=== PATIENT | female | born 1970 | race Caucasian/White ===

== ENCOUNTER → 2016-10-01 | Outpatient (CLI) | payer OTHER ==
[~2016-10-01] MED LIST: CLON0.5T PO; EFFE150C PO; LIPI10TA PO; PREV30CA11 PO
--- NOTE | 2016-10-01 14:29 | REPMRS ---
Patient History The patient states she had a clinical breast exam in 09/2016. Patient is postmenopausal. Family history of breast cancer in maternal aunt under age 50. Digital Woman Screen Mammo: October 01, 2016 - Exam #: [id number] Bilateral CC and MLO view(s) were taken. Technologist: Radha Lin, Technologist Prior study comparison: May 17, 2015, digital woman screen mammo performed at [facility]. October 29, 2013, digital woman screen mammo performed at [facility]. March 14, 2012, digital woman screen mammo performed at [facility]. September 18, 2010, bilateral bilat screen digital mammo performed at [facility]. FINDINGS: The breast tissue is almost entirely fat. There has been no change in the appearance of the mammogram from the prior studies. There is no interval development of dominant mass, areas of architectural distortion, or clustered microcalcification typical of malignancy. Scattered fibronodular densities seen in the parenchyma in same small numbers, size and distribution as on multiple prior exams. Scattered lymph nodes are seen in the right axilla. There are scattered, small, benign calcifications of doubtful clinical significance. No significant changes when compared with prior studies. ASSESSMENT: BI-RADS/ACR category 2 mammogram. Benign finding(s). Recommendation Routine screening mammogram in 1 year. A. Negative x-ray reports should not delay biopsy if a dominant or clinically suspicious mass is present. B. Four to eight percent of cancers are not identified by mammography. C. Adenosis and dense breast may obscure an underlying neoplasm.(for women over age 40). This mammogram was interpreted with the aid of an FDA-approved computer-aided dectection system. Electronically Signed By: Silvestre Long MD 10/01/16 [id number]
== END ==
LOC: M WHC 13:28
PROVIDERS: ATTEND Nurse Practitioner Family
DX: Z12.31 Encounter for screening mammogram for malignant neoplasm of breast (principal); Z80.3 Family history of malignant neoplasm of breast; R92.1 Mammographic calcification found on diagnostic imaging of breast
CPT/HCPCS: 90834; G0202; G0463

== ENCOUNTER 2016-10-05 17:31 | Emergency (ER) | payer OTHER ==
[~2016-10-05] VITALS: Ht 160 cm; Wt 79.4 kg
[2016-10-05] MEDS ORDERED: LIPI10TA PO (17:52)
[2016-10-05] MEDS ORDERED: PREV30CA11 PO (17:52)
[2016-10-05] MEDS ORDERED: CLON0.5T PO (17:52)
[2016-10-05] MEDS ORDERED: EFFE150C PO (17:52)
[2016-10-05] MEDS ORDERED: ASPIRIN 81 MG CHEW TABLET PO ONE (18:15)
[2016-10-05 18:51] LABS: BASO % 0.4 % (0.0-1.0); EOS % 0.5 % (0.0-3.0); LARGE UNSTAINED CELL # 0.1 K/mm3 (0.0-0.4); LARGE UNSTAINED CELL % 1.4 % (0.0-4.0); LYMPH # 2.1 K/mm3 (1.5-4.5); LYMPH % 22.8 % (24.0-44.0); MEAN CORPUSCULAR HEMOGLOBIN 30.5 pg (27.0-33.0); MEAN CORPUSCULAR HGB CONC 34.5 g/dl (32.0-36.5); MEAN CORPUSCULAR VOLUME 88.4 fl (80.0-96.0); MONO # 0.4 K/mm3 (0.0-0.8); MONO % 4.6 % (0.0-5.0); NEUTROPHILS # 6.6 K/mm3 (1.8-7.7); NEUTROPHILS % 70.2 % (36.0-66.0); PLATELET COUNT, AUTOMATED 311 k/mm3 (150-450); RED CELL DISTRIBUTION WIDTH 11.9 % (11.5-14.5); WHITE BLOOD COUNT 9.4 K/mm3 (4.0-10.0)
[2016-10-05 19:14] LABS: ALBUMIN/GLOBULIN RATIO 1.29 (1.00-1.93); ALKALINE PHOSPHATASE 82 U/L (45-117); ALT/SGPT 24 U/L (12-78); ANION GAP 7 MEQ/L (8-16); AST/SGOT 10 U/L (15-37); BILIRUBIN,DIRECT < 0.1 MG/DL (0.0-0.2); BILIRUBIN,TOTAL 0.2 MG/DL (0.2-1.0); BLOOD UREA NITROGEN 9 MG/DL (7-18); CALCIUM LEVEL 9.1 MG/DL (8.5-10.1); CARBON DIOXIDE LEVEL 29 MEQ/L (21-32); CHLORIDE LEVEL 103 MEQ/L (98-107); CREATININE FOR GFR 0.97 MG/DL (0.55-1.02); GLOMERULAR FILTRATION RATE > 60.0 (>58); GLUCOSE, FASTING 247 MG/DL (70-105); POTASSIUM SERUM 4.7 MEQ/L (3.5-5.1); SODIUM LEVEL 139 MEQ/L (136-145); TOTAL PROTEIN 7.1 GM/DL (6.4-8.2)
--- NOTE | 2016-10-05 19:22 | REP ---
AP PORTABLE CHEST: 10/05/2016: Clinical history: Chest pain. Comparison: Chest x-ray 03/03/2013, 07/05/2011, portable chest 08/18/2012. Findings: Lungs are adequately inflated. There is no effusion or definite infiltrate. No dense atelectasis, pulmonary nodule or mass. The heart is not enlarged. There is no widening of the mediastinum. There is no vascular redistribution or edema. The aortic contour is normal. Airway intact. Impression: 1. No acute cardiopulmonary change. Stable chest. Signed by Silvestre Long MD 10/05/2016 08:19 P
[2016-10-06 00:05] VITALS: BP 115/65
--- NOTE | 2016-10-06 08:30 | ECGEPIP ---
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
--- NOTE | 2016-10-06 08:32 | ECGEPIP ---
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
== END 2016-10-06 00:06 | disposition home or self-care (01) ==
LOC: M ED 18:32
DX: R07.89 Other chest pain (principal); K21.9 Gastro-esophageal reflux disease without esophagitis; E78.5 Hyperlipidemia, unspecified; F41.9 Anxiety disorder, unspecified; F32.9 Major depressive disorder, single episode, unspecified; F17.210 Nicotine dependence, cigarettes, uncomplicated; Z82.49 Family history of ischemic heart disease and other diseases of the circulatory system; Z88.1 Allergy status to other antibiotic agents; Z91.040 Latex allergy status; Z91.048 Other nonmedicinal substance allergy status; Z79.899 Other long term (current) drug therapy

== ENCOUNTER → 2018-04-01 | Outpatient (CLI) | payer BC, OTHER, SELFPAY | LOC: M ADAMS 14:57 | DX: J20.9 Acute bronchitis, unspecified (principal) | CPT/HCPCS: 71046 ==

== ENCOUNTER → 2018-04-01 | Outpatient (CLI) | payer BC, OTHER, SELFPAY ==
[2018-04-01 19:21] LABS: BASO % 0.2 % (0.0-1.0); IMMATURE GRANULOCYTE % 0.7 % (0-3.0); LYMPH # 3.3 10^3/uL (1.5-4.5); LYMPH % 25.3 % (24.0-44.0); MEAN CORPUSCULAR HEMOGLOBIN 29.9 pg (27.0-33.0); MEAN CORPUSCULAR VOLUME 87.7 fl (80.0-96.0); MONO # 0.7 10^3/uL (0.0-0.8); MONO % 5.4 % (0.0-5.0); NEUTROPHILS # 8.8 10^3/uL (1.8-7.7); NEUTROPHILS % 68.4 % (36.0-66.0); PLATELET COUNT, AUTOMATED 342 10^3/uL (150-450); RED BLOOD COUNT 5.36 10^6/uL (4.00-5.40); RED CELL DISTRIBUTION WIDTH 11.9 % (11.5-14.5); WHITE BLOOD COUNT 12.8 10^3/uL (4.0-10.0)
== END ==
LOC: M LABDRWAD 14:54
DX: J20.9 Acute bronchitis, unspecified (principal)
CPT/HCPCS: 85025

== ENCOUNTER → 2018-12-19 | Outpatient (CLI) | payer OTHER ==
[~2018-12-19] MED LIST changes: -CLON0.5T PO; +CLON0.5T8 PO; -EFFE150C PO; +EFFE150C2 PO; +PREV1CAP PO; -PREV30CA11 PO
--- NOTE | 2018-12-19 16:35 | REPMRS ---
Patient History The patient states she had a clinical breast exam in 12/2018. Patient is postmenopausal. Family history of breast cancer at age 32 in maternal aunt. No Hormone Replacement Therapy Digital Woman Screen Mammo: December 19, 2018 - Exam #: [id number] Bilateral CC and MLO view(s) were taken. Technologist: Radha Lin, Technologist Prior study comparison: October 01, 2016, digital woman screen mammo performed at [facility]. May 17, 2015, digital woman screen mammo performed at [facility]. October 29, 2013, digital woman screen mammo performed at [facility]. FINDINGS: The breast tissue is almost entirely fat. There are small stable subcentimeter nodules present bilaterally. There has been no change in the appearance of the mammogram from the prior studies. There is no interval development of dominant mass, architectural distortion, or clustered microcalcification typical of malignancy. Assessment: BI-RADS/ACR category 2 mammogram. Benign Findings. Recommendation Routine screening mammogram of both breasts in 1 year (for women over age 40). This patient's Lifetime Breast Cancer RIsk is estimated at 7.8 %. This mammogram was interpreted with the aid of an FDA-approved computer-aided dectection system. Electronically Signed By: Jabari Joyner MD 12/19/18 [id number]
== END ==
LOC: M WHC 14:51
PROVIDERS: ATTEND Nurse Practitioner Family
DX: Z12.31 Encounter for screening mammogram for malignant neoplasm of breast (principal); Z80.3 Family history of malignant neoplasm of breast
CPT/HCPCS: 77067; G0463

== ENCOUNTER → 2019-04-26 | Outpatient (REF) | payer OTHER | LOC: M LAB REF 13:00 | PROVIDERS: ATTEND Physician Assistant Medical | DX: N39.0 Urinary tract infection, site not specified (principal) ==

== ENCOUNTER → 2019-07-15 | Outpatient (CLI) | payer OTHER ==
[~2019-07-15] MED LIST changes: +CLON0.5T2 PO; -CLON0.5T8 PO; +GLIM2TAB29 PO; +OMEP-221 PO
[2019-07-15 17:28] LABS: BLOOD UREA NITROGEN 12 MG/DL (7-18); CREATININE FOR GFR 0.96 MG/DL (0.55-1.30); GLOMERULAR FILTRATION RATE > 60.0 (>58)
== END ==
LOC: M PLALAB 12:57
PROVIDERS: ATTEND Nurse Practitioner Family
DX: Z91.89 Other specified personal risk factors, not elsewhere classified (principal)

== ENCOUNTER → 2019-07-23 | Outpatient (CLI) | payer OTHER ==
[~2019-07-23] MED LIST changes: +PROHANCE 279.3MG/ML 15ML VIAL (A9576) As Ordered ONE
--- NOTE | 2019-07-23 16:20 | REP ---
Bilateral breast MRI study without and with IV gadolinium: History: Positive family history breast carcinoma. 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 Comparison mammography December 19, 2018. Technique: Three Kathy MRI imaging was performed with a dedicated breast coil. Axial, coronal, and sagittal T1 and T2-weighted scans were obtained with and without fat saturation in the usual fashion. The study includes dynamically acquired post gadolinium enhanced imaging subtraction imaging. Maximal intensity projection and multiplanar re-formation imaging is included as well. The study was interpreted with the aid of [employer], an FDA approved computer-aided detection (CAD) software program, on a dedicated breast MRI work station. The gadolinium enhancement dose is 15 ml of intravenous ProHance. Findings: There is a mild pattern of scattered fibroglandular elements. There is mild background parenchymal enhancement. There is no evidence of axillary lymphadenopathy or significant breast cystic change. High-resolution pre and postcontrast imaging shows no suspicious morphologic abnormality in either breast. Dynamically acquired sequential post contrast images show no suspicious focus of enhancement washout in either breast to suggest malignancy. Subtraction images show no additional abnormality. Impression: BIRADS category one negative findings. Repeat screening breast MRI study recommended 1 year. Annual screening mammography should continue beginning 6 months from now. Electronically Signed by Dayne Joyner MD 07/23/2019 05:04 P
== END ==
LOC: M RAD 12:19
PROVIDERS: ATTEND Nurse Practitioner Family
DX: Z80.3 Family history of malignant neoplasm of breast (principal); Z91.89 Other specified personal risk factors, not elsewhere classified
CPT/HCPCS: A9576; C8908

== ENCOUNTER 2019-07-30 06:34 | Day surgery (SDC) | payer OTHER ==
[~2019-07-30] VITALS: Ht 160 cm; Wt 76.2 kg
[~2019-07-30 06:34] MED LIST changes: -PROHANCE 279.3MG/ML 15ML VIAL (A9576) As Ordered ONE
[2019-07-30] MEDS ORDERED: NS 1,000 ML IV ONE (07:00)
[2019-07-30] MEDS ORDERED: propofoL 200 MG/20 ML VIAL As Ordered ONE (07:05)
[2019-07-30] MEDS ORDERED: LIDOCAINE 2% INJ 100 MG/5 ML SDV (FOR ANES.) As Ordered ONE (07:05)
--- NOTE | 2019-07-30 07:54 | ROOR ---
Patient Name: Chelsea Diego Procedure Date: 07/30/2019 7:30 AM Date of : 1970 Age: 49 Room: [facility] Gender: Female Note Status: Finalized Procedure: Colonoscopy Indications: Family history of colon cancer. Genetic susceptibility to cancer Z15.09 Providers: Markus WHITTEN MD Referring MD: Mandie Merrill NP Requesting Provider: Medicines: Monitored Anesthesia Care Complications: No immediate complications. Procedure: Pre-Anesthesia Assessment: - The heart rate, respiratory rate, oxygen saturations, blood pressure, adequacy of pulmonary ventilation, and response to care were monitored throughout the procedure. The Colonoscope was introduced through the anus and advanced to the terminal ileum, with identification of the appendiceal orifice and IC valve. The colonoscopy was performed without difficulty. The patient tolerated the procedure well. The quality of the bowel preparation was good. Findings: The perianal and digital rectal examinations were normal. A few small-mouthed diverticula were found in the sigmoid colon. The entire examined colon appeared normal on direct and retroflexion views. Impression: - A few small sigmoid diverticula. - The entire examined colon is otherwise normal on direct and retroflexion views. - No specimens collected. Recommendation: - Repeat colonoscopy in 5 years for screening purposes. Markus Whitten MD Markus WHITTEN MD 07/30/2019 7:53:57 AM Electronically signed by Markus WHITTEN MD Number of Addenda: 0 Note Initiated On: 07/30/2019 7:30 AM Estimated Blood Loss: Estimated blood loss: none.
[2019-07-30 08:10] VITALS: BP 134/88
== END 2019-07-30 08:21 | disposition home or self-care (01) ==
LOC: M OPP 06:34
PROVIDERS: ATTEND Internal Medicine Gastroenterology
DX: K57.30 Diverticulosis of large intestine without perforation or abscess without bleeding (principal); Z80.0 Family history of malignant neoplasm of digestive organs; Z15.09 Genetic susceptibility to other malignant neoplasm; Z79.84 Long term (current) use of oral hypoglycemic drugs; Z79.899 Other long term (current) drug therapy; F17.210 Nicotine dependence, cigarettes, uncomplicated; Z88.1 Allergy status to other antibiotic agents; Z88.5 Allergy status to narcotic agent; Z91.040 Latex allergy status; Z91.048 Other nonmedicinal substance allergy status

== ENCOUNTER → 2019-10-14 | Outpatient (REF) | payer OTHER ==
[2019-10-14 19:11] LABS: BLOOD UREA NITROGEN 15 MG/DL (7-18); CREATININE FOR GFR 0.87 MG/DL (0.55-1.30); GLOMERULAR FILTRATION RATE > 60.0 (>58)
== END ==
LOC: M LABDRWAD 16:25
PROVIDERS: ATTEND Orthopaedic Surgery
DX: M25.571 Pain in right ankle and joints of right foot (principal); R22.41 Localized swelling, mass and lump, right lower limb

== ENCOUNTER → 2019-11-09 | Outpatient (CLI) | payer OTHER | LOC: M LABSMTC 13:40 | PROVIDERS: ATTEND Family Medicine | DX: Z11.59 Encounter for screening for other viral diseases (principal); Z01.818 Encounter for other preprocedural examination ==

== ENCOUNTER → 2019-11-17 | Outpatient (REF) | payer OTHER ==
[~2019-11-17] MED LIST changes: +AZIT-12; +MUCI600T31 PO; +PRED20TA
== END ==
LOC: M LAB REF 08:27
PROVIDERS: ATTEND Dermatology
DX: B07.9 Viral wart, unspecified (principal)

== ENCOUNTER 2019-11-28 15:31 | Emergency (ER) | payer OTHER ==
[~2019-11-28] VITALS: Ht 162.6 cm; Wt 75.4 kg
[~2019-11-28 15:31] MED LIST changes: -AZIT-12; -MUCI600T31 PO; -PRED20TA
[2019-11-28] MEDS ORDERED: PRED20TA (16:01)
[2019-11-28] MEDS ORDERED: AZIT-12 (16:01)
[2019-11-28 16:02] LABS: VENOUS BASE EXCESS -1.2 (-2.0-2.0); VENOUS HCO3 23.7 MEQ/L (23.0-27.0); VENOUS O2 SATURATION 83.1 % (60.0-80.0); VENOUS PARTIAL PRESSURE CO2 40.3 mmHg (38.0-50.0); VENOUS PH 7.387 UNITS (7.330-7.430); VENOUS STANDARD HCO3 23.1 MEQ/L; VENOUS TOTAL CO2 24.9 MEQ/L (24.0-28.0)
[2019-11-28 16:10] LABS: BASO % 0.2 % (0.0-1.0); HEMATOCRIT 47.9 % (36.0-47.0); HEMOGLOBIN 16.4 g/dl (12.0-15.5); LYMPH # 2.3 10^3/uL (1.5-5.0); MEAN CORPUSCULAR HEMOGLOBIN 29.4 pg (27.0-33.0); MEAN CORPUSCULAR HGB CONC 34.2 g/dl (32.0-36.5); MEAN CORPUSCULAR VOLUME 85.8 fl (80.0-96.0); MONO # 0.4 10^3/uL (0.0-0.8); MONO % 3.1 % (0.0-5.0); NEUTROPHILS # 9.9 10^3/uL (1.5-8.5); NEUTROPHILS % 78.2 % (36.0-66.0); PLATELET COUNT, AUTOMATED 332 10^3/uL (150-450); RED BLOOD COUNT 5.58 10^6/uL (4.00-5.40); WHITE BLOOD COUNT 12.7 10^3/uL (4.0-10.0)
[2019-11-28] MEDS ORDERED: NS 1,000 ML IV ONE (16:15)
[2019-11-28] MEDS ORDERED: IPRATROPIUM 0.5MG/ALBUTEROL 2.5MG INH SOL UD 3ML (DUONEB) NEB ONE (16:15)
--- NOTE | 2019-11-28 16:35 | REP ---
Clinical: Cough and shortness of breath . Comparison: 04/01/2018 . Findings: The mediastinum and cardiac silhouette are stable and within normal limits for portable technique. The lung hogue are clear without acute consolidation, effusion, or pneumothorax. Skeletal structures are intact. Impression: No acute cardiopulmonary process appreciated. Electronically Signed by Rohith Dempsey MD 11/28/2019 04:26 P
[2019-11-28 16:37] LABS: ALBUMIN 4.2 GM/DL (3.2-5.2); BILIRUBIN,DIRECT 0.1 MG/DL (0.0-0.2); BILIRUBIN,TOTAL 0.3 MG/DL (0.2-1.0); TOTAL PROTEIN 7.7 GM/DL (6.4-8.2)
[2019-11-28] MEDS ORDERED: ISOVUE-370 76% 100ML VIAL As Ordered ONE (16:38)
[2019-11-28] MEDS ORDERED: MUCI600T31 PO (17:15)
[2019-11-28 17:20] VITALS: BP 119/70
--- NOTE | 2019-11-29 09:13 | REP ---
Clinical: Acute chest pain with cough and shortness of breath. Technique: Axial contrast enhanced images from the thoracic inlet to the upper abdomen using 75 ml Isovue 370 intravenous contrast material with coronal and sagittal re-formations. Post processing coronal and sagittal MIP images obtained. Findings: Satisfactory enhancement of the pulmonary vasculature is achieved and no filling defects are identified to suggest pulmonary embolus. Thoracic aorta is normal caliber without aneurysm or dissection. Heart and pericardium are normal. Bilateral lung hogue are well aerated and clear without acute pulmonary parenchymal consolidation or atelectasis. No nodule or mass lesion. No pleural effusion/reaction. No pneumothorax. No adenopathy. Impression: No evidence for pulmonary embolus. No acute pleuroparenchymal or mediastinal process. Electronically Signed by Rohith Dempsey MD 11/29/2019 08:54 A
== END 2019-11-28 17:26 | disposition home or self-care (01) ==
LOC: M ED 15:31
DX: J40 Bronchitis, not specified as acute or chronic (principal); R50.9 Fever, unspecified; E11.65 Type 2 diabetes mellitus with hyperglycemia; Z87.442 Personal history of urinary calculi; F17.210 Nicotine dependence, cigarettes, uncomplicated; J30.1 Allergic rhinitis due to pollen; Z79.899 Other long term (current) drug therapy; Z79.52 Long term (current) use of systemic steroids; Z79.2 Long term (current) use of antibiotics; Z91.040 Latex allergy status; Z91.048 Other nonmedicinal substance allergy status; Z88.1 Allergy status to other antibiotic agents; Z88.5 Allergy status to narcotic agent
CPT/HCPCS: 71045; 71275; 80047; 80076; 82803; 83690; 85025; 85379; 94640; 96360; 99284; Q9967

== ENCOUNTER 2019-12-14 19:29 | Emergency (ER) | payer OTHER ==
[~2019-12-14] VITALS: Ht 160 cm; Wt 75.7 kg
[~2019-12-14 19:29] MED LIST changes: +AZIT-12; +MUCI600T31 PO; +PRED20TA
[2019-12-14] MEDS ORDERED: KEFL500C17 PO (19:38)
[2019-12-14] MEDS ORDERED: KETOROLAC 30 MG/ML 1ML VIAL IV ONE (20:15)
[2019-12-14 20:29] LABS: BASO # 0.1 10^3/uL (0.0-0.2); BASO % 0.5 % (0.0-1.0); EOS % 0.1 % (0.0-3.0); HEMATOCRIT 47.5 % (36.0-47.0); HEMOGLOBIN 16.2 g/dl (12.0-15.5); LYMPH # 3.9 10^3/uL (1.5-5.0); LYMPH % 37.6 % (24.0-44.0); MEAN CORPUSCULAR HEMOGLOBIN 29.8 pg (27.0-33.0); MEAN CORPUSCULAR HGB CONC 34.1 g/dl (32.0-36.5); MEAN CORPUSCULAR VOLUME 87.3 fl (80.0-96.0); MONO % 9.5 % (0.0-5.0); NEUTROPHILS # 5.4 10^3/uL (1.5-8.5); NEUTROPHILS % 51.7 % (36.0-66.0); PLATELET COUNT, AUTOMATED 322 10^3/uL (150-450); RED BLOOD COUNT 5.44 10^6/uL (4.00-5.40); WHITE BLOOD COUNT 10.5 10^3/uL (4.0-10.0)
[2019-12-14 20:49] LABS: ERYTHROCYTE SEDIMENTATION RATE 8 mm/hr (0-20)
[2019-12-14 20:51] LABS: INR 1.01
[2019-12-14 20:52] LABS: PARTIAL THROMBOPLASTIN TIME 28.6 SECONDS (25.0-38.4)
[2019-12-14 20:58] LABS: ALBUMIN 3.9 GM/DL (3.2-5.2); ALT/SGPT 23 U/L (12-78); BILIRUBIN,DIRECT 0.1 MG/DL (0.0-0.2); BILIRUBIN,TOTAL 0.4 MG/DL (0.2-1.0); BLOOD UREA NITROGEN 8 MG/DL (7-18); C REACTIVE PROTEIN QUANTITATIV 1.26 MG/DL (0.00-0.30); CALCIUM LEVEL 9.3 MG/DL (8.5-10.1); CARBON DIOXIDE LEVEL 26 MEQ/L (21-32); CHLORIDE LEVEL 104 MEQ/L (98-107); GLOMERULAR FILTRATION RATE > 60.0 (>58); GLUCOSE, FASTING 198 MG/DL (70-100); POTASSIUM SERUM 4.2 MEQ/L (3.5-5.1); SODIUM LEVEL 137 MEQ/L (136-145); TOTAL PROTEIN 7.2 GM/DL (6.4-8.2)
[2019-12-14] MEDS ORDERED: BACT800T5 PO ×2 (21:20→21:50)
[2019-12-14] MEDS ORDERED: GENT1OI TOP (21:20)
[2019-12-14] MEDS ORDERED: ceFAZolin SOD 1 GM in D5W MINI-BAG PLUS 50 ML IV ONE (21:30)
--- NOTE | 2019-12-14 21:37 | CR.PDOC ---
General Date of Consultation: Dec 14, 2019 Referring Provider: DAWN CANTU MD Consultation REASON FOR CONSULTATION/CHIEF COMPLAINT: Blister on right lateral ankle after tr eatment in office last week. HISTORY OF PRESENT ILLNESS: Patient is a 49 yo WF who is a smoker with past medical history of poorly controlled DM2, left ankle fracture in 2016, and MRSA in 2005 who presents to the ED at [facility] after discussion with me on the phone. Patient had biopsy proven wart of the right lateral malleolus (ankle) in November 2019 at [facility] Dermatology. Last week, patient opted for treatment of the wart after discussion of R/B/A (including doing nothing) and opted for cantharidin podophyllin and melinda acid treatment in the clinic. She washed the resin off mid afternoon as instructed and the next day noticed a blister forming. The area became puffier each subsequent day and more tender to walk on the right foot. This morning the patient sent me photographs of the right foot and ankle. It was warm and tender to touch but she could move the foot. I sent her doxy and tramadol. She did not get/take the doxy because of intolerance to tetracycline type medications (upset stomach, n/v). She sent more pictures about 6 pm this evening. The area was more swollen and warmer and more painful and she had not started abx as discussed above. I sent her Keflex and scheduled a follow up with me at 715 am. After careful consideration, I called her back about 30 minutes later and discussed more in depth the degree of her symptoms. Based on the severity of her symptoms, the appearance of the blister, the redness and warmth of the area, her uncontrolled diabetes, I offered to meet the patient at the ED to address the problem and evaluate for a SSTI/cellulitis vs. concern for septic joint development in a diabetic patient with a wound to the right ankle. She told me she had already taken one Keflex and that she would meet me at the ED. ALLERGIES: Please see below. HOME MEDICATIONS: Please see below. Past Medical History Endometriosis. Esophageal reflux. Disc disease/bulging back/chronic back pain. Abnormal pap smear. Hyperlipidemia. MRSA 06/12. Hydradenitis supprativa. Anxiety and panic attacks. Urinary incontinence. DM type 2. Fx left ankle 2016. Chek2 Gene mutation ,elevated breast cancer risk 23-48 % and colon cancer risk may also be elevated. Surgical History hysterectomy [facility] 2006 laser therapy/cryo laparoscopy appendectomy and right ovary 01/2006 left ovary removed 06/2006 tonsillectomy 11/16 Family History Father: 59 yrs, [place] Mother: alive, hyperlipidemia Siblings: brother thyroid disease,cholesterol [place] at age 48 Paternal Grand Mother: , stomach cancer Maternal uncle: bladder cancer Maternal aunt: , cancer, bilateral breast in her 30's mets brain GI , lung 1 brother(s) , 2 sister(s) . grandparents DM denies family hx of melanoma. Social History General: Tobacco Use Are you a: current smoker How often do you smoke cigarettes? every day How soon after you wake up do you smoke your first cigarette? 6-30 min How many cigarettes a day do you smoke? 6-10 Are you interested in quitting? Not ready to quit Patient counseled on the dangers of tobacco use and urged to quit: 08/28/2019 Counseled the patient on smoking effects, education provided 02/09/2019 Latex Questionnaire Latex Allergy : Have you ever developed any type of reaction after handling latex products such as rubber gloves, condoms, diaphragms, balloons, socks, or underwear? Yes - Please Indicate : Condoms, Other (document in notes) blisters Latex Allergy : Have you ever developed any type of reaction during or after dental appointment, vaginal/rectal examination, surgical procedure, or any other exposure? No Latex Risk : Have you ever had any difficulty breathing or hives after eating or handling any fruits, or vegetables; such as kiwi, bananas, stone fruits, or chestnuts No Latex Risk : Do you have a previous personal history of more than nine surgeries, spina bifida, or repeated catherizations? No Latex Risk : Are you frequently exposed to latex products in your occupation? No Date Asked : 08/28/2019 BMI Care Goal Follow-Up Above Normal BMI Follow-Up Lifestyle education regarding diet Alcohol Screening Did you have a drink containing alcohol in the past year? No Points 0 Interpretation Negative Recreational drug use denies. Caffeine Caffeine use? Yes 6 cups daily HIV / Hep-C Screening HIV Test Offered to Patient: Yes Date Offered: 12/19/2018 Test Accepted: No Hep-C Test Offered to Patient: No Reason: Patient Declined Brochure Provided to Patient No Rastafari Rastafari 33 None Language Languages spoken: Romansh Education Level of Education: College GED, some college Learning Barriers / Special Needs Change from Last Visit? No Barriers to Learning? No Hearing Impaired? No Vision Impaired? No Cognitively Impaired? No Readiness to Learn? Yes Learning Preferences? No Learning Capabilities Present? Yes Emotional Barriers? No Special Devices? No Contract Loader Needed? No Domestic Violence none. 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 Diet: lower carbs. Exercise: Walks 3 hours 3 x a week. 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 Others at home: spouse, adult son. REVIEW OF SYSTEMS: CONSTITUTIONAL: No fever, no chills, no fatigue (no problems in last several days) HEENT: No URI symptoms CARDIOVASCULAR: No chest pain RESPIRATORY: No trouble breathing GENITOURINARY: No genital sores MUSCULOSKELETAL: + pain with walking on the right foot GASTROINTESTINAL: No nausea, no vomiting SKIN: + blister right ankle, redness right ankle, warmth right pain, tenderness to palpation right ankle NEUROLOGICAL: No headache, no dizziness PSYCHIATRIC: No change in mood other than concern for recent situation ENDOCRINE: + high blood sugars that do not go below 200 even when fasting HEMATOLOGIC/LYMPHATIC: No abnormal bruising, + swelling of the right lower leg to foot and ankle ALLERGIC/IMMUNOLOGIC: No recent allergic reactions per patient PHYSICAL EXAMINATION: VITAL SIGNS: Please see below. GENERAL APPEARANCE: WDWNWF in NAD, overweight HEENT: EOMI RESPIRATORY: RRR CARDIOVASCULAR: No pitting edema of the lower extremities ABDOMEN: Soft supple EXTREMITIES: Right lower extremity with lateral malleolus (ankle) with 4.5 cm blister (original wart = 3 cm at time of shave biopsy), tender to palpation, mildly warm to touch, erythema around site; for the right foot/ankle - no pain with passive or active flexion done at bedside, nor pain with adduction or abduction of the right foot/ankle NEUROLOGICAL: AAOx4 PSYCHIATRIC: Mood congruent, affect normal LABORATORY DATA: Please see below. ASSESSMENT/PLAN: 49 yo WF with in office treatment last week for wart on right lateral ankle with large blister at site with pain, redness, warmth, tenderness, and difficulty walking with concern for SSTI/cellulitis > septic joint. 1. Blister - The blister itself represents a robust response to the treatment offered in clinic. Patient is aware. Based on size of lesion, and after informed consent was obtained with R/B/A reviewed, the patient elected to get I&D of the blister with fluid sent for wound culture. The area was cleansed with Hibiclens, an absorptive pad was placed under the right foot, an 18 G needle was used to place 3 incisions into the inferolateral aspect of the blister, approximately 10 cc of fluid drained off the blister, fluid was obtained for culture. I advised the ED to wrap with Vaseline, Keflex, and Coban. 2. Pain, redness, warmth, tenderness, and difficulty walking on right foot - My concern is for SSTI/cellulitis at the site given her uncontrolled diabetes. I agree with the ED obtaining CBC, CMP, ESR, CRP, lactate, blood cultures x 2. The patient is afebrile. She is able to ambulate. Pending laboratories, I will defer to the ED re: disposition of need for hospital bed vs. outpatient follow up on abx. If able to be safely discharged, then should place on Bactrim, stop Keflex, and should complete a minimum of 10-14 day course. Patient has tolerated sulfa in the past. In addition, she should apply gentamicin ointment daily to the area and then wrap up with compressive bandage to help with edema of the foot. Prior to placing gentamicin ointment, she should wash the foot and ankle with Hibiclens. She should follow up with me and her primary within the week, the ONLINE ACTIVIST in the ED is aware of these directions. For pain, patient received ketorolac. I prescribed her tramadol 50 mg daily for high pain levels x 7 days, patient is aware and has rx and she can use the medicine if necessary. I agree with giving patient an IV dose of antibiotics per ED discretion before leaving the ED. At home, she should also keep her legs elevated and recline of the couch, optimize her blood sugars, patient is aware. If not able to be discharged, I would recommend admit to the hospital and ortho evaluation if concern for joint involvement based on labs, ED is aware. She would need to be placed on IV abx. I would follow along as a vendor management consultant were patient admitted in the hospital. Disposition pending the above. If anything changes and the patient has been discharged from the ED, she has my cell phone work number and will call me or text me as she was earlier in the day. Patient is aware of plan. Dawn Cantu MD FAAD Director, [facility] Vital Signs/I&O Vital Signs Date Time Temp Pulse Resp B/P (MAP) Pulse Ox O2 Delivery O2 Flow Rate FiO2 12/14/19 19:29 98.4 102 18 141/84 (103) 98 Allergies Coded Allergies: HAY FEVER (Verified Allergy, Intermediate, STRAW - BLISTERS, 07/16/19) Latex, Natural Rubber (Verified Allergy, Mild, condoms- rash, 12/14/19) TAPE (Verified Allergy, Mild, RASH, 12/14/19) hydrocodone (Unverified Allergy, Unknown, 12/14/19) erythromycin base (Verified Adverse Reaction, Intermediate, chest pain, 12/14/19) tetracycline (Verified Adverse Reaction, Intermediate, chest pain, 12/14/19) doxycycline (Verified Adverse Reaction, Mild, nausea, 12/14/19) Home Medications Scheduled Atorvastatin Calcium (Lipitor) 10 Mg Tab, 10 MG PO DAILY, (Reported) Cephalexin (Keflex) 500 Mg Capsule, 500 MG PO TID for 10 Days, #30 (Reported) Clonazepam (Clonazepam) 0.5 Mg Tab, 0.5 MG PO DAILY, (Reported) Glimepiride (Glimepiride) 2 Mg Tablet, 2 MG PO DAILY, (Reported) Guaifenesin (Mucinex) 600 Mg Tab.er.12h, 1 TAB PO BID for cough for 10 Days, #20 Omeprazole (Omeprazole) 40 Mg Capsule.dr, 40 MG PO DAILY, (Reported) Venlafaxine HCl (Effexor Xr) 150 Mg Cap, 225 MG PO DAILY, (Reported) DAWN CANTU MD Dec 14, 2019 20:01
[2019-12-14 22:11] VITALS: BP 136/84
== END 2019-12-14 22:21 | disposition home or self-care (01) ==
LOC: M ED 19:29
DX: L03.115 Cellulitis of right lower limb (principal); E11.9 Type 2 diabetes mellitus without complications; F17.200 Nicotine dependence, unspecified, uncomplicated; J30.89 Other allergic rhinitis; Z79.4 Long term (current) use of insulin; Z79.899 Other long term (current) drug therapy; Z88.1 Allergy status to other antibiotic agents; Z88.5 Allergy status to narcotic agent; Z91.040 Latex allergy status
CPT/HCPCS: 10060; 80048; 80076; 83605; 85025; 85610; 85652; 85730; 86140; 87040; 87070; 87205; 96365; 96375; 99283; J0690; J1885

== ENCOUNTER → 2019-12-31 | Outpatient (CLI) | payer OTHER ==
[~2019-12-31] MED LIST changes: +BACT800T5 PO; +GENT1OI TOP; +KEFL500C17 PO
== END ==
LOC: M LABSMTC 10:45
PROVIDERS: ATTEND Family Medicine
DX: Z03.818 Encounter for observation for suspected exposure to other biological agents ruled out (principal); Z11.59 Encounter for screening for other viral diseases
CPT/HCPCS: C9803; U0003

== ENCOUNTER → 2020-06-13 | Outpatient (CLI) | payer SELFPAY | LOC: M LABSMTC 19:10 | PROVIDERS: ATTEND Pediatrics | DX: Z11.59 Encounter for screening for other viral diseases (principal) ==

== ENCOUNTER → 2020-06-16 | Outpatient (CLI) | payer OTHER ==
[~2020-06-16] MED LIST changes: +BYDU2INJ7 SQ; +GLIM4TAB5 PO; +VENL75CA2 PO
--- NOTE | 2020-06-16 12:51 | REP ---
INDICATION: N64.4 LT BREAST PAIN. Localized left breast pain superomedial quadrant. COMPARISON: Mammography dated December 19, 2018, October 01, 2016, and May 17, 2015. TECHNIQUE: Bilateral CC and MLO) view(s) were taken. 3D tomography is carried out. FINDINGS: Scattered fibroglandular elements are seen bilaterally. No suspicious or dominant density is seen. No microcalcification or architectural distortion is seen. No worrisome skin change is appreciated. 3-D tomosynthesis shows no additional finding. Normal lymph nodes are noted in the axillary regions. No suspicious mammographic abnormality. The Volpara volumetric breast density pattern is B. Targeted sonography: Targeted sonography in the area patient's pain in and about the left breast superiorly shows homogeneous breast parenchymal texture. No cyst, mass, or acoustic shadowing is seen by ultrasound. IMPRESSION: BIRADS/ACR category 1 negative mammographic and sonographic findings. This patient's Tyrer-Cuzick lifetime breast cancer risk assessment score is 7.6%. This mammogram was interpreted with the aid of an FDA-approved computer-aided detection system. The patient states she had a clinical breast exam in June of 2020. The patient letter being requested is M2. RECOMMENDATION: Repeat screening mammography recommended 1 year (for women over 40). <Electronically signed by Jabari Joyner > 06/16/20 [id number]
== END ==
LOC: M WHC 08:59
PROVIDERS: ATTEND Nurse Practitioner Family
DX: N64.4 Mastodynia (principal)
CPT/HCPCS: 76642; 77066; G0279; G0463

== ENCOUNTER 2020-07-09 10:49 | Emergency (ER) | payer OTHER ==
[~2020-07-09] VITALS: Ht 162.6 cm; Wt 74.8 kg
[~2020-07-09 10:49] MED LIST changes: -BYDU2INJ7 SQ; -GLIM4TAB5 PO; -VENL75CA2 PO
[2020-07-09] MEDS ORDERED: BYDU2INJ7 SQ (11:04)
[2020-07-09 11:14] LABS: BASO # 0.1 10^3/uL (0.0-0.2); BASO % 0.4 % (0.0-1.0); HEMATOCRIT 50.1 % (36.0-47.0); HEMOGLOBIN 16.3 g/dl (12.0-15.5); LYMPH # 3.4 10^3/uL (1.5-5.0); LYMPH % 25.1 % (24.0-44.0); MEAN CORPUSCULAR HEMOGLOBIN 28.6 pg (27.0-33.0); MEAN CORPUSCULAR HGB CONC 32.5 g/dl (32.0-36.5); MONO # 0.8 10^3/uL (0.0-0.8); MONO % 5.8 % (0.0-5.0); NEUTROPHILS # 9.2 10^3/uL (1.5-8.5); NEUTROPHILS % 68.3 % (36.0-66.0); PLATELET COUNT, AUTOMATED 336 10^3/uL (150-450); RED BLOOD COUNT 5.69 10^6/uL (4.00-5.40); WHITE BLOOD COUNT 13.5 10^3/uL (4.0-10.0)
[2020-07-09] MEDS ORDERED: ASPIRIN 81 MG CHEW TABLET PO ONE (11:15)
[2020-07-09] MEDS: NITROGLYCERIN 0.4 MG SUBL TABLET SL PRN ×3 (11:20→11:30)
[2020-07-09 11:25] VITALS: BP 126/85
--- NOTE | 2020-07-09 11:40 | REP ---
INDICATION: CHEST PAIN COMPARISON: 11/28/2019 TECHNIQUE: Portable AP view of the chest FINDINGS: The mediastinum and cardiac silhouette are stable and within normal limits for portable technique. The lung hogue are clear without acute consolidation, effusion, or pneumothorax. Skeletal structures are intact. IMPRESSION: No acute cardiopulmonary process appreciated. <Electronically signed by Rohith Dempsey > 07/09/20 [id number]
[2020-07-09] MEDS: MORPHINE 4 MG/ML 1ML VIAL/SYRINGE (J2270) IV PRN ×2 (11:43→12:39)
[2020-07-09] MEDS ORDERED: ONDANSETRON 4MG/2ML VIAL IV ONE (11:45)
[2020-07-09 11:52] LABS: ALT/SGPT 32 U/L (12-78); BILIRUBIN,DIRECT < 0.1 MG/DL (0.0-0.2); BILIRUBIN,TOTAL 0.3 MG/DL (0.2-1.0); FREE T4 1.18 NG/DL (0.76-1.46); LIPASE 442 U/L (73-393); NT-PRO BNP 132 PG/ML (<125); TOTAL PROTEIN 7.2 GM/DL (6.4-8.2)
[2020-07-09] MEDS ORDERED: ISOVUE-370 76% 100ML VIAL As Ordered ONE (13:45)
--- NOTE | 2020-07-09 14:10 | REP ---
INDICATION: CP COMPARISON: None. TECHNIQUE: Axial contrast enhanced images from the thoracic inlet to the upper abdomen using pulmonary embolus technique with multiplanar re-formations. 100 ml Isovue 370 intravenous contrast material administered without complication. This CT examination was performed using the following dose reduction techniques: Automated exposure control, adjustment of mA and/or kv according to the patient's size, and use of iterative reconstruction technique. FINDINGS: Satisfactory enhancement of the pulmonary vasculature is achieved and no filling defects are identified to suggest pulmonary embolus. Further evaluation of the mediastinum demonstrates normal thoracic aorta, heart and pericardium. The bilateral lung hogue are well aerated and clear without consolidation pleural effusion or pneumothorax. Tracheobronchial tree is patent. No nodule or mass lesion is identified. No adenopathy noted. Surrounding musculoskeletal structures intact IMPRESSION: No evidence for pulmonary embolus. No acute mediastinal or pleural parenchymal process. <Electronically signed by Rohith Dempsey > 07/09/20 [id number]
--- NOTE | 2020-07-09 14:16 | REP ---
INDICATION: abd pain. COMPARISON: 02/14/2009 TECHNIQUE: Axial contrast-enhanced images from the lung bases to the pubic symphysis using 100 cc Isovue 370 intravenous contrast material. Coronal and sagittal reformations obtained.. This CT examination was performed using the following dose reduction techniques: Automated exposure control, adjustment of mA and/or kv according to the patient's size, and the use of iterative reconstruction technique. FINDINGS: Diffuse fatty infiltration to the liver noted without focal hepatic lesion. Spleen, pancreas, gallbladder, bilateral adrenal glands and kidneys are normal. The enteric system including stomach, small, and large bowel appears normal. No evidence for obstruction or acute inflammatory process. Evidence for prior appendectomy noted. Few scattered sigmoid diverticula are appreciated without acute diverticulitis. Pelvis demonstrates normal bladder and evidence for prior hysterectomy. No ascites. No free air. No intraperitoneal or retroperitoneal adenopathy. Small fat containing periumbilical hernia. Abdominal aorta and vasculature appear normal. Musculoskeletal structures are intact and without acute osseous abnormality. IMPRESSION: No acute abdominopelvic pathology appreciated. No ascites, focal inflammatory stranding, or adenopathy. Hepatosteatosis. Evidence for prior appendectomy and hysterectomy. <Electronically signed by Rohith Dempsey > 07/09/20 [id number]
--- NOTE | 2020-07-09 14:39 | ECGEPIP ---
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
--- NOTE | 2020-07-09 14:40 | ECGEPIP ---
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
--- NOTE | 2020-07-09 14:41 | ECGEPIP ---
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
[2020-07-09] MEDS ORDERED: GLIM4TAB5 PO (15:22)
[2020-07-09] MEDS ORDERED: VENL75CA2 PO (15:22)
[2020-07-09 16:44] LABS: RSV AMPLIFICATION NEGATIVE (NEGATIVE)
[2020-07-09] MEDS ORDERED: HEPARIN SOD (PORCINE) 5000UNITS/ML 1ML VIAL/SYRINGE IV ONE (17:45)
[2020-07-09] MEDS ORDERED: CLOPIDOGREL 300 MG TAB (PLAVIX) PO ONE (17:45)
[2020-07-09] MEDS ORDERED: HEPARIN DRIP 25,000 UNITS in IV 1 EA IV SCH (18:00)
[2020-07-09 18:47] VITALS: BP 116/92
== END 2020-07-09 18:49 | disposition short-term general hospital (02) ==
LOC: M ED 10:49
DX: I21.4 Non-ST elevation (NSTEMI) myocardial infarction (principal); R07.9 Chest pain, unspecified; I44.0 Atrioventricular block, first degree; K76.0 Fatty (change of) liver, not elsewhere classified; E11.9 Type 2 diabetes mellitus without complications; J30.89 Other allergic rhinitis; E78.5 Hyperlipidemia, unspecified; F17.200 Nicotine dependence, unspecified, uncomplicated; Z79.899 Other long term (current) drug therapy; Z91.040 Latex allergy status; Z91.89 Other specified personal risk factors, not elsewhere classified; Z88.1 Allergy status to other antibiotic agents; Z88.5 Allergy status to narcotic agent
CPT/HCPCS: 71045; 71275; 74177; 80047; 80076; 83690; 83880; 84439; 84443; 84484; 85025; 87631; 93005; 93041; 94760; 96374; 96375; 96376; 99285; J1644; J2270; J2405; Q9967

== ENCOUNTER → 2020-08-18 | Outpatient (REF) | payer OTHER ==
[~2020-08-18] MED LIST changes: +BYDU2INJ7 SQ; +GLIM4TAB5 PO; +VENL75CA2 PO
[2020-08-18 15:00] LABS: BLOOD UREA NITROGEN 15 MG/DL (7-18); CREATININE FOR GFR 0.96 MG/DL (0.55-1.30); GLOMERULAR FILTRATION RATE > 60.0 (>58)
== END ==
LOC: M PLALAB 09:43
PROVIDERS: ATTEND Nurse Practitioner Family
DX: Z91.89 Other specified personal risk factors, not elsewhere classified (principal)

== ENCOUNTER → 2020-08-18 | Outpatient (CLI) | payer OTHER ==
[2020-08-18 15:15] LABS: LUTEINIZING HORMONE 38.4 mIU/mL; PROLACTIN 4.2 NG/ML; THYROID STIMULATING HORMONE 0.543 uIU/ML (0.358-3.740)
[2020-08-18 17:08] LABS: FOLLICLE STIMULATING HORMONE 107.2 mIU/mL
--- NOTE | 2020-08-19 01:42 | REPPI ---
INDICATION: M25.511 PAIN IN RIGHT SHOULDER COMPARISON: 03/11/2013 TECHNIQUE: Internal rotation, external rotation, and Y view. FINDINGS: No acute fracture or dislocation. The acromioclavicular and glenohumeral joints are intact. Subacromial space is normal. The bulky calcifications adjacent to the greater tuberosity on prior examination are considerably decreased with only small residual calcifications now identified. IMPRESSION: Decreased calcifications adjacent to the greater tuberosity as compared with 2013. Otherwise age-appropriate examination. <Electronically signed by Rohith Dempsey > 08/19/20 0139
== END ==
LOC: M PLAIMG 09:44
PROVIDERS: ATTEND Family Medicine
DX: M25.511 Pain in right shoulder (principal); R23.2 Flushing; Z91.89 Other specified personal risk factors, not elsewhere classified

== ENCOUNTER → 2020-09-12 | Outpatient (CLI) | payer OTHER ==
--- NOTE | 2020-09-12 15:04 | REP ---
INDICATION: ROTATOR CUFF RUPTURE. COMPARISON: None. TECHNIQUE: Coronal oblique T1, T2 fat sat, sagittal oblique T2 fat sat, axial T2 fat sat, gradient echo. FINDINGS: Rotator cuff: There are partial thickness undersurface tears of the supraspinatus and infraspinatus tendons. Acromioclavicular joint: There are mild hypertrophic degenerative changes of the acromioclavicular joint. Acromion: Type 1 Biceps Tendon: Within the bicipital groove, there is mild to moderate surrounding fluid. Hill Sach's deformity: None. Deltoid muscle: No abnormal signal. Biceps labral complex: There is a tear at the biceps labral complex. Labrum: There is a SLAP tear. There is a tear of the anterior labrum. Cartilage: There is a tear of the anterior glenoid cartilage. Bone marrow: Mild subcortical marrow edema and cystic changes seen in the superolateral humeral head. Joint fluid: Small joint effusion is seen. Within the fluid beneath the coracoid process there is debris, possible synovial thickening and a possible joint body measuring 5 mm in diameter. IMPRESSION: Partial thickness undersurface tears of supraspinatus and infraspinatus tendons. Mild hypertrophic degenerative changes acromioclavicular joint. Mild to moderate fluid surrounding the biceps tendon. There is a tear of the biceps labral complex and an associated SLAP tear. There is an anterior glenoid cartilage and labral tear. Small complex joint effusion with possible synovial thickening and joint body 5 mm in diameter. <Electronically signed by Kyler Miles > 09/12/20 [id number]
== END ==
LOC: M RAD 13:14
PROVIDERS: ATTEND Family Medicine
DX: M75.101 Unspecified rotator cuff tear or rupture of right shoulder, not specified as traumatic (principal); M25.411 Effusion, right shoulder

== ENCOUNTER → 2021-01-31 | Outpatient (CLI) | payer OTHER ==
[2021-01-31 14:09] LABS: BLOOD UREA NITROGEN 14 MG/DL (7-18); CALCIUM LEVEL 9.5 MG/DL (8.5-10.1); CARBON DIOXIDE LEVEL 26 MEQ/L (21-32); CHLORIDE LEVEL 106 MEQ/L (98-107); CREATININE FOR GFR 0.77 MG/DL (0.55-1.30); GLOMERULAR FILTRATION RATE > 60.0 (>58); GLUCOSE, FASTING 170 MG/DL (70-100); POTASSIUM SERUM 4.7 MEQ/L (3.5-5.1); SODIUM LEVEL 139 MEQ/L (136-145)
== END ==
LOC: M PLALAB 10:10
PROVIDERS: ATTEND Surgery
DX: Z91.89 Other specified personal risk factors, not elsewhere classified (principal)

== ENCOUNTER → 2021-02-01 | Outpatient (CLI) | payer OTHER ==
[~2021-02-01] MED LIST changes: +PROHANCE 279.3MG/ML 15ML VIAL As Ordered ONE
--- NOTE | 2021-02-01 14:27 | REP ---
INDICATION: BREAST SCREENING-HIGH RISK. COMPARISON: Comparison prior breast MRI study 23 July 2019. TECHNIQUE: Three Kathy MRI imaging was performed with a dedicated breast coil. Axial, coronal, and sagittal T1 and T2 weighted scans were obtained with and without fat saturation in the usual fashion. The study includes dynamically acquired post gadolinium-enhanced imaging with image subtraction. Maximum intensity projection and multi planar reformation imaging is included as well. This study is interpreted with the aid of [employer], an FDA approved computer aided detection (CAD) software program, on a dedicated breast MRI workstation. The gadolinium enhancement dose is 15 mL of intravenous ProHance. FINDINGS: There is a mild amount of fibroglandular tissue bilaterally corresponding with the mammographic pattern. There is minimal background parenchymal enhancement. There is no evidence of axillary lymphadenopathy or significant breast cystic change. High-resolution pre and post-contrast T1 and T2 weighted scans show no suspicious morphologic abnormality in either breast. Dynamically acquired sequential postcontrast images show no suspicious area of enhancement and washout kinetics in either breast to suggest malignancy. Subtraction images show no additional abnormality. There are multiple small subcentimeter cysts visible on T2 weighted scans in both breasts unchanged from the prior study. IMPRESSION: BI-RADS category 2 benign bilateral breast MRI findings. <Electronically signed by Jabari Joyner > 02/01/21 [id number]
== END ==
LOC: M RAD 11:18
PROVIDERS: ATTEND Surgery
DX: Z12.31 Encounter for screening mammogram for malignant neoplasm of breast (principal); R92.8 Other abnormal and inconclusive findings on diagnostic imaging of breast
CPT/HCPCS: A9576; C8908

== ENCOUNTER → 2021-07-05 | Outpatient (REF) ==
[~2021-07-05] MED LIST changes: -PROHANCE 279.3MG/ML 15ML VIAL As Ordered ONE
== END ==
LOC: M LABSMTC 09:47
PROVIDERS: ATTEND Pediatrics
DX: Z20.828 Contact with and (suspected) exposure to other viral communicable diseases (principal)

== ENCOUNTER → 2021-08-17 | Outpatient (CLI) | payer OTHER ==
[~2021-08-17] MED LIST changes: -OMEP-221 PO; +OMEP40CA5 PO
== END ==
LOC: M WHC 14:00
PROVIDERS: ATTEND Advanced Practice Midwife
DX: Z12.31 Encounter for screening mammogram for malignant neoplasm of breast (principal); Z91.89 Other specified personal risk factors, not elsewhere classified; Z80.3 Family history of malignant neoplasm of breast; Z80.0 Family history of malignant neoplasm of digestive organs; R92.1 Mammographic calcification found on diagnostic imaging of breast
CPT/HCPCS: 77063; 77067; G0463

== ENCOUNTER → 2021-10-03 | Outpatient (CLI) | payer OTHER | LOC: M RAD 12:38 | PROVIDERS: ATTEND Family Medicine | DX: N20.0 Calculus of kidney (principal) ==

== ENCOUNTER → 2022-03-08 | Outpatient (REF) | payer OTHER | LOC: M LAB REF 08:30 | PROVIDERS: ATTEND Surgery | DX: D17.21 Benign lipomatous neoplasm of skin and subcutaneous tissue of right arm (principal) ==

== ENCOUNTER → 2022-03-20 | Outpatient (CLI) | payer OTHER ==
[2022-03-20 14:34] LABS: BLOOD UREA NITROGEN 18 MG/DL (7-18); CALCIUM LEVEL 9.2 MG/DL (8.5-10.1); CARBON DIOXIDE LEVEL 27 MEQ/L (21-32); CHLORIDE LEVEL 107 MEQ/L (98-107); CREATININE FOR GFR 0.79 MG/DL (0.55-1.30); GLOMERULAR FILTRATION RATE > 60.0 (>51); GLUCOSE, FASTING 178 MG/DL (70-100); POTASSIUM SERUM 4.5 MEQ/L (3.5-5.1); SODIUM LEVEL 140 MEQ/L (136-145)
== END ==
LOC: M PLALAB 09:41
PROVIDERS: ATTEND Nurse Practitioner Women's Health
DX: Z01.812 Encounter for preprocedural laboratory examination (principal)

== ENCOUNTER → 2022-03-22 | Outpatient (CLI) | payer OTHER ==
[~2022-03-22] MED LIST changes: +PROHANCE 279.3MG/ML 15ML VIAL ONE
== END ==
LOC: M PLAIMG 13:52
PROVIDERS: ATTEND Nurse Practitioner Women's Health
DX: Z15.01 Genetic susceptibility to malignant neoplasm of breast (principal); Z80.3 Family history of malignant neoplasm of breast; Z91.89 Other specified personal risk factors, not elsewhere classified
CPT/HCPCS: A9576; C8908

== ENCOUNTER → 2022-04-30 | Outpatient (CLI) | payer OTHER ==
[~2022-04-30] MED LIST changes: +ISOVUE-300 61% 50ML VIAL ONE; +LIDOCAINE 1% MDV 20ML VIAL ONE; -PROHANCE 279.3MG/ML 15ML VIAL ONE; +methylPREDNISolone SUSP 40MG/ML 1ML VIAL (DEPO MEDROL) ONE
== END ==
LOC: M IRPRO 14:15 → M PLAIMG 14:15
PROVIDERS: ATTEND Physician Assistant
DX: M25.512 Pain in left shoulder (principal)
CPT/HCPCS: 20610; 76000; J1030; Q9967

== ENCOUNTER 2022-07-12 14:54 | Observation (INO) | payer OTHER ==
[~2022-07-12] VITALS: Ht 160 cm; Wt 70.1 kg
[~2022-07-12 14:54] MED LIST changes: -ISOVUE-300 61% 50ML VIAL ONE; -LIDOCAINE 1% MDV 20ML VIAL ONE; -methylPREDNISolone SUSP 40MG/ML 1ML VIAL (DEPO MEDROL) ONE
[2022-07-12] MEDS ORDERED: METO1TAB87 PO (15:34)
[2022-07-12] MEDS ORDERED: VENL75CA47 (15:34)
[2022-07-12] MEDS ORDERED: EZET10TA21 PO (15:34)
[2022-07-12] MEDS ORDERED: FAMO40TA3 PO (15:34)
[2022-07-12] MEDS ORDERED: CLOP75TA2 PO (15:34)
[2022-07-12] MEDS ORDERED: ALBU8.5H INH (15:34)
[2022-07-12] MEDS ORDERED: ECOT81TA5 PO (15:34)
[2022-07-12 15:43] LABS: BASO % 0.4 % (0.0-1.0); EOS % 0.1 % (0.0-3.0); HEMOGLOBIN 16.7 g/dl (12.0-15.5); LYMPH # 3.2 10^3/uL (1.5-5.0); LYMPH % 28.9 % (24.0-44.0); MEAN CORPUSCULAR HEMOGLOBIN 31.4 pg (27.0-33.0); MEAN CORPUSCULAR HGB CONC 33.4 g/dl (32.0-36.5); MONO % 8.7 % (2.0-8.0); NEUTROPHILS # 6.8 10^3/uL (1.5-8.5); NEUTROPHILS % 61.2 % (36.0-66.0); PLATELET COUNT, AUTOMATED 302 10^3/uL (150-450); RED BLOOD COUNT 5.32 10^6/uL (4.00-5.40); WHITE BLOOD COUNT 11.2 10^3/uL (4.0-10.0)
[2022-07-12 16:11] LABS: LIPASE 91 U/L (12-53)
[2022-07-12 16:13] LABS: ALBUMIN 4.3 G/DL (3.2-5.2); ALKALINE PHOSPHATASE 104 U/L (46-116); ALT/SGPT 37 U/L (7.0-40); AST/SGOT 21 U/L (<34); BILIRUBIN,DIRECT 0.1 MG/DL (<0.4); BILIRUBIN,TOTAL 0.3 MG/DL (0.3-1.2); CK-MB VALUE MASS < 1.0 NG/ML (<3.6); TOTAL PROTEIN 7.2 G/DL (5.7-8.2)
[2022-07-12 16:14] LABS: CPK CREATINE PHOSPHOKINASE 25 U/L (34-145)
[2022-07-12] MEDS ORDERED: NITROGLYCERIN 0.4MG SUBL TABLET SL PRN (16:40)
[2022-07-12] MEDS ORDERED: ASPIRIN 81MG CHEW TABLET PO ONE (16:40)
[2022-07-12] MEDS ORDERED: ISOVUE-370 76% 100ML VIAL As Ordered ONE (16:43)
[2022-07-12 17:05] LABS: INR 0.9; PROTHROMBIN TIME 12.3 SECONDS (12.5-14.5)
[2022-07-12 17:25] LABS: CK-MB VALUE MASS < 1.0 NG/ML (<3.6)
[2022-07-12 17:27] LABS: CPK CREATINE PHOSPHOKINASE 16 U/L (34-145); MB/CK RELATIVE INDEX 6.25 (< OR =4)
[2022-07-12] MEDS ORDERED: NICOTINE 21MG/24HR 1 EA TRANSDERMAL TD ONE (19:10)
[2022-07-12] MEDS ORDERED: ATOR80TA59 PO (19:44)
[2022-07-12] MEDS ORDERED: VENL150C43 PO (19:44)
[2022-07-12] MEDS ORDERED: JARD1TAB3 PO (19:44)
[2022-07-12] MEDS ORDERED: HOME MED LIST COMPLETE! XX SCH (19:45)
[2022-07-12] MEDS ORDERED: ALBUTEROL 90 MCG/ACT 8GM HFA INHALER INH PRN (20:15)
[2022-07-12] MEDS ORDERED: ACETAMINOPHEN TAB 650MG DOSE (2X325MG) PO PRN (20:15)
[2022-07-12] MEDS ORDERED: GLUCOSE 4GM CHEW TABLET PO PRN (20:15)
[2022-07-12] MEDS ORDERED: clonazePAM 0.5 MG TAB PO PRN (20:15)
[2022-07-12] MEDS ORDERED: GLUCAGON INJ 1MG VIAL SC PRN (20:15)
[2022-07-12] MEDS ORDERED: DEXTROSE 50% 50ML SYRINGE IV PRN (20:15)
[2022-07-12] MEDS ORDERED: METOPROLOL TART 25 MG TABLET PO SCH (21:00)
[2022-07-12] MEDS ORDERED: ATORVASTATIN 20 MG TAB PO SCH (21:00)
[2022-07-12] MEDS ORDERED: INSULIN LISPRO (NovoLOG) PER UNIT SC SCH (21:00)
[2022-07-12] MEDS ORDERED: FAMOTIDINE 20 MG TAB PO SCH (21:00)
[2022-07-12] MEDS ORDERED: EZETIMIBE 10MG TABLET (ZETIA) PO SCH (21:00)
[2022-07-12 21:11] LABS: RSV AMPLIFICATION NEGATIVE (NEGATIVE)
[2022-07-12 21:12] VITALS: BP 111/62
[2022-07-13 06:00] VITALS: BP 125/62
[2022-07-13 06:24] LABS: HEMATOCRIT 47.1 % (36.0-47.0); HEMOGLOBIN 15.4 g/dl (12.0-15.5); MEAN CORPUSCULAR HEMOGLOBIN 31.1 pg (27.0-33.0); MEAN CORPUSCULAR HGB CONC 32.7 g/dl (32.0-36.5); MEAN CORPUSCULAR VOLUME 95.2 fl (80.0-96.0); PLATELET COUNT, AUTOMATED 250 10^3/uL (150-450); RED BLOOD COUNT 4.95 10^6/uL (4.00-5.40); WHITE BLOOD COUNT 8.8 10^3/uL (4.0-10.0)
[2022-07-13 06:53] LABS: CK-MB VALUE MASS < 1.0 NG/ML (<3.6)
[2022-07-13 06:54] LABS: MAGNESIUM LEVEL 2.2 MG/DL (1.8-2.4)
[2022-07-13 06:55] LABS: CPK CREATINE PHOSPHOKINASE 17 U/L (34-145); MB/CK RELATIVE INDEX 5.88 (< OR =4)
[2022-07-13 06:56] LABS: BLOOD UREA NITROGEN 15 MG/DL (9-23); CALCIUM LEVEL 9.2 MG/DL (8.5-10.1); CARBON DIOXIDE LEVEL 30 MMOL/L (20-31); CHLORIDE LEVEL 106 MMOL/L (98-107); CREATININE FOR GFR 0.76 MG/DL (0.55-1.30); GLOMERULAR FILTRATION RATE > 60.0 (>51); GLUCOSE, FASTING 123 MG/DL (60-100); POTASSIUM SERUM 4.8 MMOL/L (3.5-5.1); SODIUM LEVEL 142 MMOL/L (136-145)
[2022-07-13] MEDS ORDERED: INSULIN LISPRO (NovoLOG) PER UNIT SC SCH (07:30)
[2022-07-13] MEDS ORDERED: CARA1TAB6 PO (07:35)
[2022-07-13] MEDS ORDERED: NITR4TASL SL (07:35)
[2022-07-13] MEDS ORDERED: PROT1TAB2 PO (07:35)
[2022-07-13] MEDS ORDERED: SUCRALFATE 1 GM TAB PO ONE (07:40)
[2022-07-13] MEDS ORDERED: PANTOPRAZOLE 40MG TAB (PROTONIX) PO ONE (07:40)
[2022-07-13] MEDS ORDERED: VENLAFAXINE **XR** 75MG CAPSULE PO SCH ×2 (09:00)
[2022-07-13] MEDS ORDERED: ASPIRIN 81MG ENTERIC TABLET PO SCH (09:00)
[2022-07-13] MEDS ORDERED: CLOPIDOGREL 75 MG TAB PO SCH (09:00)
[2022-07-13] MEDS ORDERED: RANOLAZINE 500MG ER TAB PO ONE (09:00)
[2022-07-13] MEDS ORDERED: SUCRALFATE 1 GM TAB PO SCH (12:00)
== END 2022-07-13 09:47 | disposition home or self-care (01) ==
LOC: M ED 15:57 → M ED INP 15:58
PROVIDERS: ADMIT Internal Medicine; ATTEND Internal Medicine
DX: R07.89 Other chest pain (principal); I25.2 Old myocardial infarction; I25.10 Atherosclerotic heart disease of native coronary artery without angina pectoris; Z98.61 Coronary angioplasty status; Z79.82 Long term (current) use of aspirin; K21.9 Gastro-esophageal reflux disease without esophagitis; E78.5 Hyperlipidemia, unspecified; F41.9 Anxiety disorder, unspecified; F32.A Depression, unspecified; E11.9 Type 2 diabetes mellitus without complications; Z91.040 Latex allergy status; Z88.1 Allergy status to other antibiotic agents; Z88.5 Allergy status to narcotic agent; Z79.899 Other long term (current) drug therapy

== ENCOUNTER → 2022-08-21 | Outpatient (CLI) | payer OTHER ==
[~2022-08-21] MED LIST changes: +ALBU8.5H INH; +ATOR80TA59 PO; +CARA1TAB6 PO; +CLOP75TA2 PO; +ECOT81TA5 PO; +EZET10TA21 PO; +FAMO40TA3 PO; +JARD1TAB3 PO; +METO1TAB87 PO; +NITR4TASL SL; +PROT1TAB2 PO; +VENL150C43 PO; +VENL75CA47
== END ==
LOC: M WHC 10:35
PROVIDERS: ATTEND Nurse Practitioner Women's Health
DX: Z15.01 Genetic susceptibility to malignant neoplasm of breast (principal); Z91.89 Other specified personal risk factors, not elsewhere classified; Z80.3 Family history of malignant neoplasm of breast

== ENCOUNTER 2022-10-11 12:41 | Day surgery (SDC) | payer OTHER ==
[~2022-10-11] VITALS: Ht 160 cm; Wt 70.8 kg
[~2022-10-11 12:41] MED LIST changes: +NS 1,000 ML IV ONE; +PANT40TA29 PO
[2022-10-11] MEDS ORDERED: fentaNYL 100 MCG/2 ML INJECTION As Ordered ONE (15:12)
[2022-10-11] MEDS ORDERED: LIDOCAINE 2% 100MG/5ML SDV (FOR ANES.) As Ordered ONE (15:12)
[2022-10-11] MEDS ORDERED: propofoL 200 MG/20 ML VIAL As Ordered ONE (15:12)
[2022-10-11 16:42] VITALS: BP 108/58
== END 2022-10-11 16:54 | disposition home or self-care (01) ==
LOC: M OPP 12:41
PROVIDERS: ATTEND Internal Medicine Gastroenterology
DX: R13.10 Dysphagia, unspecified (principal); R12 Heartburn; E11.9 Type 2 diabetes mellitus without complications; G47.33 Obstructive sleep apnea (adult) (pediatric); F17.200 Nicotine dependence, unspecified, uncomplicated; Z95.5 Presence of coronary angioplasty implant and graft; Z79.02 Long term (current) use of antithrombotics/antiplatelets; Z79.51 Long term (current) use of inhaled steroids; Z79.82 Long term (current) use of aspirin; Z79.84 Long term (current) use of oral hypoglycemic drugs; Z88.1 Allergy status to other antibiotic agents; Z88.5 Allergy status to narcotic agent; Z91.040 Latex allergy status; Z91.048 Other nonmedicinal substance allergy status; Z80.0 Family history of malignant neoplasm of digestive organs; Z80.1 Family history of malignant neoplasm of trachea, bronchus and lung; Z80.52 Family history of malignant neoplasm of bladder; Z80.3 Family history of malignant neoplasm of breast
CPT/HCPCS: 43235; 43450; J3010

== ENCOUNTER 2022-10-18 10:30 | Day surgery (SDC) | payer OTHER ==
[~2022-10-18] VITALS: Ht 160 cm; Wt 71.7 kg
[~2022-10-18 10:30] MED LIST changes: -NS 1,000 ML IV ONE
[2022-10-18] MEDS ORDERED: LR 1,000 ML IV SCH ×3 (11:25→17:50)
[2022-10-18] MEDS ORDERED: propofoL 200 MG/20 ML VIAL As Ordered ONE (15:01)
[2022-10-18] MEDS ORDERED: ONDANSETRON 4MG 2ML VIAL As Ordered ONE (15:01)
[2022-10-18] MEDS ORDERED: ROCURONIUM BROMIDE 50MG/5ML VIAL As Ordered ONE (15:01)
[2022-10-18] MEDS ORDERED: SUGAMMADEX SODIUM 500 MG/5 ML VIAL (BRIDION) As Ordered ONE (15:01)
[2022-10-18] MEDS ORDERED: LIDOCAINE 2% 100MG/5ML SDV (FOR ANES.) As Ordered ONE (15:01)
[2022-10-18] MEDS ORDERED: fentaNYL 100 MCG/2 ML INJECTION As Ordered ONE (15:26)
[2022-10-18] MEDS ORDERED: MIDAZOLAM INJ 2MG/2ML VIAL As Ordered ONE (15:26)
[2022-10-18] MEDS ORDERED: ACETAMINOPHEN 1000MG 100ML IV BAG As Ordered ONE (15:28)
[2022-10-18] MEDS ORDERED: EPINEPHrine 1MG/ML INJ 30ML MD-VIAL As Ordered ONE (15:41)
[2022-10-18] MEDS ORDERED: LIDOCAINE W/EPINEPHRINE 1% 20ML VIAL As Ordered ONE ×2 (15:41→15:42)
[2022-10-18] MEDS ORDERED: POLYSPORIN TOPICAL OINTMENT 15GM As Ordered ONE (15:41)
[2022-10-18] MEDS ORDERED: METHYLENE BLUE 0.5% (5MG/ML) 10 ML AMP (PROVAYBLUE) As Ordered ONE (15:41)
[2022-10-18] MEDS ORDERED: LIDOCAINE 2% JELLY 6ML SYRINGE As Ordered ONE (16:18)
[2022-10-18] MEDS ORDERED: ePHEDrine SULFATE 25 MG/5 ML(5MG/ML) SYRINGE As Ordered ONE (16:20)
[2022-10-18] MEDS ORDERED: PHENYLephrine 500MCG 5ML (100MCG/ML) SYRINGE As Ordered ONE (16:20)
[2022-10-18] MEDS ORDERED: ONDANSETRON 4MG 2ML VIAL IV PRN (16:30)
[2022-10-18] MEDS ORDERED: fentaNYL 100 MCG/2 ML INJECTION IV PRN (16:30)
[2022-10-18] MEDS ORDERED: oxyCODONE 5MG TAB PO PRN (16:30)
[2022-10-18] MEDS ORDERED: HYDROMORPHONE HCL 0.5 MG/ 0.5 ML SYRINGE IV PRN (16:30)
[2022-10-18 17:15] VITALS: BP 120/75
== END 2022-10-18 17:34 | disposition home or self-care (01) ==
LOC: M SDC 10:30
PROVIDERS: ATTEND Otolaryngology
DX: D14.0 Benign neoplasm of middle ear, nasal cavity and accessory sinuses (principal); I10 Essential (primary) hypertension; E11.9 Type 2 diabetes mellitus without complications; E78.5 Hyperlipidemia, unspecified; I25.2 Old myocardial infarction; Z98.61 Coronary angioplasty status; F17.210 Nicotine dependence, cigarettes, uncomplicated; Z91.040 Latex allergy status; Z88.1 Allergy status to other antibiotic agents; Z79.51 Long term (current) use of inhaled steroids; Z79.84 Long term (current) use of oral hypoglycemic drugs; Z79.899 Other long term (current) drug therapy; Z79.02 Long term (current) use of antithrombotics/antiplatelets; F41.9 Anxiety disorder, unspecified; F32.A Depression, unspecified; K21.9 Gastro-esophageal reflux disease without esophagitis
CPT/HCPCS: 30117; 88305; J0131; J1100; J2250; J2370; J2405; J3010

== ENCOUNTER → 2023-02-21 | Outpatient (CLI) | payer OTHER | LOC: M SLEEP 20:00 | PROVIDERS: ATTEND Internal Medicine Pulmonary Disease | DX: R06.83 Snoring (principal); G47.34 Idiopathic sleep related nonobstructive alveolar hypoventilation ==

== ENCOUNTER → 2023-03-22 | Outpatient (REF) | payer OTHER ==
[2023-03-22 17:34] LABS: BLOOD UREA NITROGEN 13 MG/DL (9-23); CALCIUM LEVEL 9.4 MG/DL (8.5-10.1); CARBON DIOXIDE LEVEL 28 MMOL/L (20-31); CHLORIDE LEVEL 106 MMOL/L (98-107); CREATININE FOR GFR 0.78 MG/DL (0.55-1.30); GLOMERULAR FILTRATION RATE > 60.0 (>51); GLUCOSE, FASTING 111 MG/DL (60-100); POTASSIUM SERUM 4.5 MMOL/L (3.5-5.1); SODIUM LEVEL 141 MMOL/L (136-145)
== END ==
LOC: M SFHCADAM 13:52
PROVIDERS: ATTEND Nurse Practitioner Women's Health
DX: Z01.818 Encounter for other preprocedural examination (principal)

== ENCOUNTER → 2023-05-27 | Outpatient (CLI) | payer OTHER ==
[2023-05-27 14:14] LABS: BASO # 0.1 10^3/uL (0.0-0.2); BASO % 0.4 % (0.0-1.0); EOS % 0.3 % (0.0-3.0); HEMATOCRIT 46.9 % (36.0-47.0); LYMPH # 3.1 10^3/uL (1.5-5.0); LYMPH % 27.4 % (24.0-44.0); MEAN CORPUSCULAR HEMOGLOBIN 31.7 pg (27.0-33.0); MEAN CORPUSCULAR HGB CONC 34.1 g/dl (32.0-36.5); MEAN CORPUSCULAR VOLUME 93.1 fl (80.0-96.0); MONO # 0.9 10^3/uL (0.0-0.8); MONO % 7.8 % (2.0-8.0); NEUTROPHILS # 7.2 10^3/uL (1.5-8.5); NEUTROPHILS % 63.7 % (36.0-66.0); PLATELET COUNT, AUTOMATED 291 10^3/uL (150-450); RED BLOOD COUNT 5.04 10^6/uL (4.00-5.40); WHITE BLOOD COUNT 11.3 10^3/uL (4.0-10.0)
[2023-05-27 14:19] LABS: HEMOGLOBIN A1c 6.8 % (4.0-6.0)
[2023-05-27 14:22] LABS: ALKALINE PHOSPHATASE 90 U/L (46-116); ALT/SGPT 28 U/L (7.0-40); AST/SGOT 16 U/L (<34); BILIRUBIN,TOTAL 0.4 MG/DL (0.3-1.2); BLOOD UREA NITROGEN 18 MG/DL (9-23); CALCIUM LEVEL 9.2 MG/DL (8.5-10.1); CARBON DIOXIDE LEVEL 26 MMOL/L (20-31); CHLORIDE LEVEL 105 MMOL/L (98-107); CHOLESTEROL LEVEL 137 MG/DL (<200); CHOLESTEROL RISK RATIO 3.12 (<5); CREATININE FOR GFR 0.75 MG/DL (0.55-1.30); GLOMERULAR FILTRATION RATE > 60.0 (>51); GLUCOSE, FASTING 180 MG/DL (60-100); HDL CHOLESTEROL 43.8 MG/DL (>40); NON-HDL-C 93.2 MG/DL; POTASSIUM SERUM 4.6 MMOL/L (3.5-5.1); SODIUM LEVEL 139 MMOL/L (136-145); TOTAL PROTEIN 6.7 G/DL (5.7-8.2); TRIGLYCERIDES LEVEL 171 MG/DL (<150)
== END ==
LOC: M PLALAB 09:44
PROVIDERS: ATTEND Family Medicine
DX: E11.9 Type 2 diabetes mellitus without complications (principal)

== ENCOUNTER → 2023-05-27 | Outpatient (CLI) | payer OTHER | LOC: M PLALAB 09:40 | PROVIDERS: ATTEND Internal Medicine Pulmonary Disease | DX: R09.02 Hypoxemia (principal); Z53.9 Procedure and treatment not carried out, unspecified reason ==

== ENCOUNTER → 2023-05-27 | Outpatient (CLI) | payer OTHER ==
[~2023-05-27] MED LIST changes: +PROHANCE 279.3MG/ML 15ML VIAL ONE
== END ==
LOC: M PLAIMG 09:46
PROVIDERS: ATTEND Nurse Practitioner Women's Health
DX: Z12.31 Encounter for screening mammogram for malignant neoplasm of breast (principal); Z80.3 Family history of malignant neoplasm of breast; Z15.01 Genetic susceptibility to malignant neoplasm of breast; Z91.89 Other specified personal risk factors, not elsewhere classified
CPT/HCPCS: 36415; 80053; 80061; 83036; 85025; A9576; C8908

== ENCOUNTER → 2023-05-31 | Outpatient (CLI) | payer OTHER ==
[~2023-05-31] MED LIST changes: -PROHANCE 279.3MG/ML 15ML VIAL ONE
[2023-05-31 10:44] LABS: ABG HCO3 24.2 MMOL/L (22.0-26.0); ABG PARTIAL PRESSURE CO2 38.2 mmHg (35.0-45.0); ABG PARTIAL PRESSURE O2 78.2 mmHg (75.0-100.0); ABG STANDARD HCO3 24.5 MMOL/L. (22.0-26.0); ABG TOTAL CO2 25.4 MMOL/L (22.0-29.0)
== END ==
LOC: M LAB 10:08
PROVIDERS: ATTEND Internal Medicine Pulmonary Disease
DX: R09.02 Hypoxemia (principal)

== ENCOUNTER → 2023-08-28 | Outpatient (CLI) | payer OTHER ==
[~2023-08-28] MED LIST changes: -EFFE150C2 PO; +EFFE150C3 PO
== END ==
LOC: M WHC 12:59
PROVIDERS: ATTEND Nurse Practitioner Women's Health
DX: Z12.31 Encounter for screening mammogram for malignant neoplasm of breast (principal); Z15.01 Genetic susceptibility to malignant neoplasm of breast; Z80.3 Family history of malignant neoplasm of breast; Z91.89 Other specified personal risk factors, not elsewhere classified; N63.11 Unspecified lump in the right breast, upper outer quadrant

== ENCOUNTER → 2023-09-03 | Outpatient (CLI) | payer OTHER | LOC: M WHC 13:11 | PROVIDERS: ATTEND Nurse Practitioner Women's Health | DX: R92.8 Other abnormal and inconclusive findings on diagnostic imaging of breast (principal); Z91.89 Other specified personal risk factors, not elsewhere classified; Z15.01 Genetic susceptibility to malignant neoplasm of breast; Z80.3 Family history of malignant neoplasm of breast; N60.11 Diffuse cystic mastopathy of right breast ==

== ENCOUNTER → 2023-11-05 | Outpatient (CLI) | payer OTHER | LOC: M RAD 06:27 | PROVIDERS: ATTEND Family Medicine | DX: Z12.2 Encounter for screening for malignant neoplasm of respiratory organs (principal); F17.210 Nicotine dependence, cigarettes, uncomplicated; R91.1 Solitary pulmonary nodule; I25.10 Atherosclerotic heart disease of native coronary artery without angina pectoris ==

== ENCOUNTER → 2024-02-11 | Outpatient (REF) | payer OTHER ==
[2024-02-11 19:08] LABS: BLOOD UREA NITROGEN 17 MG/DL (9-23); CALCIUM LEVEL 9.4 MG/DL (8.5-10.1); CARBON DIOXIDE LEVEL 29 MMOL/L (20-31); CHLORIDE LEVEL 106 MMOL/L (98-107); CREATININE, URINE 64.1 MG/DL; GLOMERULAR FILTRATION RATE > 60.0 (>51); GLUCOSE, FASTING 128 MG/DL (60-100); POTASSIUM SERUM 4.5 MMOL/L (3.5-5.1); SODIUM LEVEL 140 MMOL/L (136-145)
[2024-02-11 19:09] LABS: MALB URINE SIEMENS < 3.0 MG/L; MAU/CREAT RATIO 4.6 MCG/MG (0.0-30.0)
== END ==
LOC: M LABDRWAD 16:52
PROVIDERS: ATTEND Family Medicine
DX: E11.9 Type 2 diabetes mellitus without complications (principal)

== ENCOUNTER → 2024-07-29 | Outpatient (REF) | payer OTHER | LOC: M PLALAB 12:28 | PROVIDERS: ATTEND Advanced Practice Midwife | DX: S30.814A Abrasion of vagina and vulva, initial encounter (principal); R10.2 Pelvic and perineal pain; L30.8 Other specified dermatitis; L85.8 Other specified epidermal thickening ==

== ENCOUNTER → 2024-10-02 | Outpatient (CLI) | payer OTHER | LOC: M RAD 13:14 | PROVIDERS: ATTEND Physician Assistant | DX: M47.892 Other spondylosis, cervical region (principal); M50.322 Other cervical disc degeneration at C5-C6 level; M50.323 Other cervical disc degeneration at C6-C7 level; M50.222 Other cervical disc displacement at C5-C6 level; M50.223 Other cervical disc displacement at C6-C7 level ==

== ENCOUNTER → 2024-11-10 | Outpatient (CLI) | payer OTHER ==
[~2024-11-10] MED LIST changes: -BYDU2INJ7 SQ; +EXEN2AUT SQ; +PROHANCE 279.3MG/ML 15ML VIAL ONE
== END ==
LOC: M PLAIMG 07:49
PROVIDERS: ATTEND Advanced Practice Midwife
DX: Z15.01 Genetic susceptibility to malignant neoplasm of breast (principal); Z91.89 Other specified personal risk factors, not elsewhere classified; Z12.39 Encounter for other screening for malignant neoplasm of breast; R92.8 Other abnormal and inconclusive findings on diagnostic imaging of breast
CPT/HCPCS: A9576; C8908

== ENCOUNTER → 2024-11-19 | Outpatient (CLI) | payer OTHER ==
[~2024-11-19] MED LIST changes: -PROHANCE 279.3MG/ML 15ML VIAL ONE
== END ==
LOC: M WHC 07:23
PROVIDERS: ATTEND Physician Assistant
DX: R92.8 Other abnormal and inconclusive findings on diagnostic imaging of breast (principal); Z80.3 Family history of malignant neoplasm of breast; Z15.01 Genetic susceptibility to malignant neoplasm of breast

== ENCOUNTER → 2024-11-24 | Outpatient (CLI) | payer OTHER | LOC: M RAD 15:18 | PROVIDERS: ATTEND Family Medicine | DX: Z87.891 Personal history of nicotine dependence (principal) ==

== ENCOUNTER → 2025-01-25 | Outpatient (CLI) | payer OTHER ==
[~2025-01-25] MED LIST changes: +TIRZ5PEN
[2025-01-25 15:26] LABS: BASO # 0.1 10^3/uL (0.0-0.2); BASO % 0.6 % (0.0-1.0); EOS # 0.0 10^3/uL (0.0-0.5); EOS % 0.3 % (0.0-3.0); LYMPH # 3.8 10^3/uL (1.5-5.0); LYMPH % 46.9 % (24.0-44.0); MONO # 0.7 10^3/uL (0.0-0.8); MONO % 9.1 % (2.0-8.0); NEUTROPHILS # 3.4 10^3/uL (1.5-8.5); NEUTROPHILS % 42.7 % (36.0-66.0); PLATELET COUNT, AUTOMATED 264 10^3/uL (150-450)
[2025-01-25 15:48] LABS: ALT/SGPT 17.0 U/L (7.0-40); AST/SGOT 15.0 U/L (<34); CALCIUM LEVEL 9.2 MG/DL (8.5-10.1); CARBON DIOXIDE LEVEL 28.0 MMOL/L (20-31); CHLORIDE LEVEL 104.0 MMOL/L (98-107); CREATININE FOR GFR 0.84 MG/DL (0.55-1.30); GLOMERULAR FILTRATION RATE 83.0 (>51); POTASSIUM SERUM 4.5 MMOL/L (3.5-5.1); SODIUM LEVEL 142.0 MMOL/L (136-145)
== END ==
LOC: M PLALAB 12:51
PROVIDERS: ATTEND Family Medicine
DX: Z01.818 Encounter for other preprocedural examination (principal)

== ENCOUNTER → 2025-05-06 | Outpatient (CLI) | payer OTHER ==
[~2025-05-06] MED LIST changes: -EZET10TA21 PO; +EZET10TA57 PO
[2025-05-06 13:42] LABS: PLATELET COUNT, AUTOMATED 333 10^3/uL (150-450)
[2025-05-06 13:43] LABS: BASO # 0.0 10^3/uL (0.0-0.2); BASO % 0.4 % (0.0-1.0); EOS # 0.0 10^3/uL (0.0-0.5); EOS % 0.3 % (0.0-3.0); LYMPH # 4.2 10^3/uL (1.5-5.0); LYMPH % 40.4 % (24.0-44.0); MONO # 0.9 10^3/uL (0.0-0.8); MONO % 8.9 % (2.0-8.0); NEUTROPHILS # 5.2 10^3/uL (1.5-8.5); NEUTROPHILS % 49.8 % (36.0-66.0); PLATELET COUNT, AUTOMATED 340 10^3/uL (150-450)
[2025-05-06 13:46] LABS: ALT/SGPT 27 U/L (7.0-40); AST/SGOT 20 U/L (<34); CALCIUM LEVEL 9.7 MG/DL (8.5-10.1); CARBON DIOXIDE LEVEL 30 MMOL/L (20-31); CHLORIDE LEVEL 104 MMOL/L (98-107); CHOLESTEROL LEVEL 108 MG/DL (<200); CHOLESTEROL RISK RATIO 2.67 (<5); CREATININE FOR GFR 0.73 MG/DL (0.55-1.30); GLOMERULAR FILTRATION RATE > 90.0 (>51); LDL CHOLESTEROL 46.7 MG/DL (<100); NON-HDL-C 67.7 MG/DL; POTASSIUM SERUM 4.7 MMOL/L (3.5-5.1); SODIUM LEVEL 141 MMOL/L (136-145); TRIGLYCERIDES LEVEL 105 MG/DL (<150)
[2025-05-06 14:06] LABS: CREATININE, URINE 159.8 MG/DL; MALB URINE SIEMENS 12.0 MG/L; MAU/CREAT RATIO 7.5 MCG/MG (0.0-30.0)
[2025-05-06 14:09] LABS: ESTIMATED AVERAGE GLUCOSE 148.0 MG/DL (60-110)
== END ==
LOC: M LABDRWAD 10:26
PROVIDERS: ATTEND Family Medicine
DX: E11.9 Type 2 diabetes mellitus without complications (principal); D75.1 Secondary polycythemia

== ENCOUNTER → 2025-06-15 | Outpatient (CLI) | payer OTHER ==
[~2025-06-15] MED LIST changes: +PROHANCE 279.3MG/ML 15ML VIAL ONE
== END ==
LOC: M PLAIMG 11:10
PROVIDERS: ATTEND Surgery
DX: Z15.09 Genetic susceptibility to other malignant neoplasm (principal); Z80.3 Family history of malignant neoplasm of breast; N63.42 Unspecified lump in left breast, subareolar
CPT/HCPCS: A9579; C8908